=== PATIENT | female | born 1985 | race Caucasian/White ===

== ENCOUNTER → 2017-02-10 | Outpatient (CLI) | payer BC ==
--- NOTE | 2017-02-11 16:47 | MAM ---
EXAM DESCRIPTION: 3D Screening BILATERAL : Digital Mammography. CLINICAL HISTORY: 31 years Female SCREENING . Right breast enlarged and painful. No family history of breast cancer. Premenopausal.. COMPARISON: 2-D digital diagnostic bilateral study 04/12/2015.. No prior reports available. TECHNIQUE: Bilateral CC and MLO projection full-field images, 3-D tomosynthesis digital mammographic technique. Also bilateral synthesized CC/ MLO full-field images. CAD not utilized. FINDINGS: The breast parenchymal density pattern is: Heterogeneously dense breast tissue, which may obscure small masses. No skin thickening or nipple retraction again noted is a region of focal asymmetry in the upper outer quadrant of the posterior third of the left breast at the 930 clock position, approximately 3 cm from the pectoral muscle. Second area of focal asymmetry is seen at the 1200 clock position approximately 2 cm posterior to the nipple in the anterior third of the breast. Intramammary lymph nodes bilaterally. No focal, stellate mass or density, focal asymmetry , and no suspicious microcalcifications left breast. IMPRESSION: BI-RADS CATEGORY: 0 - INCOMPLETE- Need additional imaging evaluation. FOLLOW-UP: Recall for additional imagin-D breast tomosynthesis full field LM image of the right breast. Targeted right breast ultrasound of the regions of interest in the posterior third and retroareolar breast. Written communication concerning the IMPRESSION and Follow-up, will be mailed to the patient and referring health care provider. Electronically signed by: Jatinder Albrecht MD 02/11/2017 4:46 PM CDT
== END | disposition home or self-care (01) ==
LOC: MAMMO 10:55
PROVIDERS: ATTEND Obstetrics & Gynecology
DX: Z12.31 Encounter for screening mammogram for malignant neoplasm of breast (principal)
CPT/HCPCS: 77063; G0202

== ENCOUNTER → 2017-02-24 | Outpatient (CLI) | payer BC ==
--- NOTE | 2017-02-25 08:16 | US ---
EXAM DESCRIPTION: Breast,Right: Ultrasound CLINICAL HISTORY: 31 yearsFemaleDIAGNOSTIC COMPARISON: Digital 2-D-3-D tomosynthesis diagnostic mammogram right breast same visit. Ultrasound right breast 04/12/2015. TECHNIQUE: Transcutaneous scanning of the upper outer quadrant right breast utilizing two-dimensional and Doppler modes. Scanning performed by the fire hydrant operator and Dr. Albrecht. FINDINGS: In the right breast at the 1000 clock position, 10 cm from the nipple is a 9.6 mm hypoechoic mass with echogenic center and minimal vascularity. Well-defined borders, consistent with a lymph node. This is adjacent to a heterogeneous fibroglandular and fatty tissues. At the 1200 clock position of the same breast, 2 cm from the nipple is a hypoechoic mass with well-defined borders and central echogenicity and vascularity consistent with a lymph node. Dimensions are 8.7 x 4.0 mm. This is adjacent to a heterogeneous fibroglandular and fatty tissues. At both locations, no discrete cysts or parenchymal edema. No large calcifications or skin thickening. IMPRESSION: 1. Bi-Rads Category 2: Benign. 2. Please refer to digital diagnostic right breast mammogram examination and report on this visit. The findings and the follow-up plan were reviewed in person with the patient after the examination. Electronically signed by: Jatinder Albrecht MD 02/25/2017 8:15 AM CDT
--- NOTE | 2017-02-25 08:16 | MAM ---
EXAM DESCRIPTION: 3D Diagnostic, Right CLINICAL HISTORY: 31 yearsFemaleDIAGNOSTIC regions of focal asymmetry in the right breast on screening examination. COMPARISON: 3-D tomosynthesis digital screening bilateral study 02/10/2017. Targeted right breast ultrasound on this visit.. Report from prior examination also reviewed. TECHNIQUE: Right breast LM, projection full-field images, 3-D tomosynthesis digital mammographic technique. Also right breast synthesized LM full-field images. CAD not utilized. FINDINGS: The breast parenchymal density pattern is: Heterogeneously dense breast tissue, which may obscure small masses. No skin thickening or nipple retraction 9.5 mm oval-shaped mass with well-defined borders and central radiolucency in the mid to posterior third of the right breast at the 1000 clock position. No associated microcalcifications. Similar Density to the surrounding fibroglandular densities tissues. Most likely a lymph node. Ultrasound: In the right breast at the 1000 clock position, 10 cm from the nipple is a 4.6 mm hypoechoic mass with echogenic center and minimal vascularity. Well-defined borders, consistent with a lymph node. This is adjacent to a heterogeneous fibroglandular and fatty tissues. At the 1200 clock position of the same breast, 2 cm from the nipple is a hypoechoic mass with well-defined borders and central echogenicity and vascularity consistent with a lymph node. Dimensions are 8.7 x 4.0 mm. This is adjacent to a heterogeneous fibroglandular and fatty tissues. At both locations, no discrete cysts or parenchymal edema. No large calcifications or skin thickening. IMPRESSION: BI-RADS CATEGORY: 2 - BENIGN FINDINGS. FOLLOW UP: Return to routine digital bilateral mammographic screening, at age 42. The FINDINGS and follow-up were reviewed with the patient in person following the ultrasound examination. Written communication explaining the IMPRESSION and follow-up, will be mailed to the patient and referring health care provider. According to the [employer], yearly mammograms are recommended starting at age 40 and continuing as long as a woman is in good health. Any breast change noted on a breast self-exam should be reported promptly to the patient's healthcare provider. Breast MRI is recommended for women with an approximately 20-25% or greater lifetime risk of breast cancer, including women with a strong family history of breast or ovarian cancer and women who have been treated for Hodgkin's disease. A negative mammographic report should not delay tissue diagnosis in patients with significant clinical history or physical findings. Extremely dense breast tissue limits the sensitivity of digital mammography. Electronically signed by: Jatinder Albrecht MD 02/25/2017 8:14 AM CDT
== END | disposition home or self-care (01) ==
LOC: MAMMO 10:40
PROVIDERS: ATTEND Obstetrics & Gynecology
DX: R92.8 Other abnormal and inconclusive findings on diagnostic imaging of breast (principal)
CPT/HCPCS: 76641; G0206; G0279